=== PATIENT | male | born 1995 | race African-American/Black ===

== ENCOUNTER 2017-02-01 19:04 | Emergency (ER) | payer OTHER ==
[2017-02-01 20:12] VITALS: BP 143/78
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
== END 2017-02-01 21:46 | disposition home or self-care (01) ==
LOC: UCCORT 19:04
DX: S62.324A Displaced fracture of shaft of fourth metacarpal bone, right hand, initial encounter for closed fracture (principal); X58.XXXA Exposure to other specified factors, initial encounter; Y93.9 Activity, unspecified; Y92.9 Unspecified place or not applicable; F12.90 Cannabis use, unspecified, uncomplicated
CPT/HCPCS: 26600; 99201; G0463

== ENCOUNTER 2017-02-08 11:59 | Day surgery (SDC) | payer OTHER ==
[~2017-02-08 11:59] MED LIST: Acetaminophen TAB* 325 MG ONE; Acetaminophen TAB* 325 MG PO ONE; Buffered Lidocaine 0.9% SYRIN* 5 ML/SYR SYRINGE INTRADERM ONE; Dexamethasone IV* 4 MG/ML 1 ML (4 MG) IV SLOW PU ONE; Dexamethasone IV* 4 MG/ML 1 ML (4 MG) ONE; Famotidine IV* 10 MG/ML 2 ML (20 mg) IV ONE; Famotidine IV* 10 MG/ML 2 ML (20 mg) ONE; Ketorolac INJ* 30 MG/ML 1 ML VIAL ONE; Midazolam* 1 MG/ML 2 ML VIAL (2 MG) ONE; Ondansetron INJ* 2 MG/ML VIAL ONE; Propofol* 10 MG/ML 20 ML BTL IV PUSH ONE; fentaNYL* 50 MCG/ML 2 ML VIAL (100 MCG VIAL) ONE
[2017-02-08] MEDS ORDERED: Ondansetron INJ* 2 MG/ML VIAL IV PRN (14:36)
[2017-02-08] MEDS ORDERED: Ibuprofen TAB* 600 MG PO PRN (14:36)
[2017-02-08] MEDS ORDERED: HYDROmorphone INJ* 1 MG/ML CARPUJECT SYRINGE IV PRN (14:36)
[2017-02-08] MEDS ORDERED: oxyCODONE TAB* 5 MG TAB PO PRN (14:36)
[2017-02-08] MEDS ORDERED: Bupivacaine 0.25% SDV* 30 ML ONE (14:55)
[2017-02-08] MEDS ORDERED: ceFAZolin 2 GM PREMIX (*) 50 ML IVPB ONE (14:56)
[2017-02-08] MEDS ORDERED: Propofol* 10 MG/ML 20 ML BTL IV PUSH ONE (15:14)
[2017-02-08] MEDS ORDERED: fentaNYL* 50 MCG/ML 2 ML VIAL (100 MCG VIAL) ONE (16:04)
[2017-02-08] MEDS: fentaNYL* 50 MCG/ML 2 ML VIAL (100 MCG VIAL) IV PRN ×4 (16:06→16:15)
[2017-02-08] MEDS ORDERED: HYDROcodone/ACETAMIN 5-325 MG* 1 TAB ONE (16:27)
[2017-02-08 16:40] VITALS: BP 149/80
--- NOTE | 2017-02-09 09:53 | RAD ---
CPT II Codes: 6045F INDICATION: Right hand pain. Five views of the right hand demonstrates internal fixation of the fourth metacarpal head fracture. 52 seconds of fluoroscopy time was used. IMPRESSION: Fluoroscopic services provided for referring physician.
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
== END 2017-02-08 17:06 | disposition home or self-care (01) ==
LOC: OREAST 11:59
PROVIDERS: ATTEND Orthopaedic Surgery Hand Surgery
DX: S62.334A Displaced fracture of neck of fourth metacarpal bone, right hand, initial encounter for closed fracture (principal); Y04.2XXA Assault by strike against or bumped into by another person, initial encounter; Y92.9 Unspecified place or not applicable
CPT/HCPCS: 76000; A9270-GY; C1776; J0690; J1100; J1885; J2250; J2405; J2704; J3010

== ENCOUNTER 2017-08-08 09:34 | Emergency (ER) | payer OTHER ==
[2017-08-08 10:28] VITALS: BP 130/76
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
[2017-08-08] MEDS ORDERED: Dexamethasone TAB* 4 MG PO ONE (10:45)
--- NOTE | 2017-08-09 16:56 | UC ---
- Progress Note Progress Note: (+) chlamydia needs treatment azithromycin 1 gm PO x 1 will send to pharmacy to take meds advise f/u as needed advise safe sex practices Discharge - Sign-Out/Discharge Documenting (check all that apply): Discharge - Discharge Plan Condition: Stable Disposition: HOME Prescriptions: Amoxicillin/Clavulanate TAB* [Augmentin TAB 875*] 875 mg PO BID 10 Days #20 tab Patient Education Materials: Sexually Transmitted Diseases (ED), Strep Throat ( ED) Referrals: No Primary Care Phys,NOPCP [Primary Care Provider] - Additional Instructions: FOLLOW UP [facility] IN 4 DAYS FOR A RECHECK OR SOONER IF WORSE. - Billing Disposition and Condition Condition: STABLE Disposition: HOME
== END 2017-08-08 11:10 | disposition home or self-care (01) ==
LOC: UCCORT 09:34
DX: J02.0 Streptococcal pharyngitis (principal); A56.8 Sexually transmitted chlamydial infection of other sites
CPT/HCPCS: 87491; 87591; 87651; 99212; G0463; J8540